=== PATIENT | male | born 1985 | race Two or more races ===

== ENCOUNTER → 2023-08-24 | Outpatient (CLI) | payer OTHER ==
[2023-08-27 08:13] LABS: HEP B SURFACE AB, QUAL(REF) Non Reactive (.)
[2023-08-27 10:24] LABS: VARICELLA ZOSTER IgG 611 index (Immune >165)
== END | disposition home or self-care (01) ==
LOC: LAB 16:09
PROVIDERS: ATTEND Pathology Anatomic Pathology & Clinical Pathology
DX: Z02.1 Encounter for pre-employment examination (principal)
CPT/HCPCS: 36415; 86706; 86787